=== PATIENT | female | born 1995 | race Caucasian/White ===

== ENCOUNTER 2024-06-20 10:24 | Emergency (ER) | payer OTHER, SELFPAY ==
[2024-06-20 10:25] VITALS: BP 131/82
--- NOTE | 2024-06-20 11:21 | ED.GENMED ---
History of Present Illness
General
Chief Complaint: Musculo-Skeletal Complaint
Time Seen by Provider: 06/20/24 10:35
History of Present Illness
History of Present Illness:
28-year-old female presents to the emergency department from relation of right great toe pain after dropping 1 pound work. She was wearing boots at the time. There is a noticeable subungual hematoma
Review of Systems
Review of Systems
Allergies reviewed?: Yes
All Other Systems: ROS reviewed and negative except as documented in HPI and ROS
Phy Exam
Physical Exam
Physical Exam:
GEN: Well appearing, NAD, WDWN
HEENT: Oral mucosa moist, no scleral icterus
Cardiac: Regular rate
Lung: No respiratory distress, no tachypnea
MSK: Moderate swelling to the right great toe with a 50% or greater subungual hematoma, trace bleeding from the nailbed, no nail plate avulsion
Skin: Good color, no pallor or jaundice, no rashes
Neuro: AO x3, moves all extremities freely
Psych: Calm, cooperative
Course
Orders/Labs/Results
Orders:
Orders
06/20/24 10:27
CR Foot - Right Min 3 Views Urgent
Comment:
Reason For Exam: injury, pain
Vital Signs
Initial and Last Documented VS:
Initial Vital Signs
Temp Pulse Resp BP Pulse Ox
98.1 F 89 16 131/82 100
06/20/24 10:25 06/20/24 10:25 06/20/24 10:25 06/20/24 10:25 06/20/24 10:25
Last Documented Vital Signs
Temp Pulse Resp BP Pulse Ox
98.1 F 89 16 131/82 100
06/20/24 10:25 06/20/24 10:25 06/20/24 10:25 06/20/24 10:25 06/20/24 10:25
Procedures
Nail Trepanation/Felon
Method of Drainage: nail cauterized
Sterile dressing applied: Yes
MDM/Problems Addressed
MDM/Problems Addressed:
Small tuft fracture intact x-ray. Additionally nail was trephinated in 2 locations due to significant subungual hematoma. Discussed supportive care
*Critical Care Note
Total Time (30-74mins, 75-104mins- exclusive of procedures): Not Applicable
ED Attending Note
-
Portions of this chart may have been created with voice recognition software.� Occasional wrong word or��sound alike� substitutions may have occurred due to the inherent limitations of voice recognition software.
Discharge Plan
Departure
Patient Disposition: Home (Routine Discharge)
Date of Disposition: 06/20/24
Time of Disposition: 11:22
Patient with high blood pressure during this ER visit?: No
Discharge Problem:
Closed fracture of distal phalanx of right great toe
Instructions: Bruising Under the Nail, Toe Fracture ED
Referrals:
UNKNOWN - PT DOES,NOT KNOW [Family Provider] -
Stand Alone Forms: Return to Work
Activity Restrictions/Additional Instructions:
Elevate and ice often to reduce pain
Interventions
Interventions:
*Risk Screen - Suicide Last Done: 06/20/24 10:25
*General Assessment Last Done: 06/20/24 10:25
*Neglect/Abuse Screening Last Done: 06/20/24 10:25
*ED COVID-19 Vaccine History Last Done: 06/20/24 10:25
*Nursing Disposition Last Done: 06/20/24 11:58
ED-Musculoskeletal Assessment Last Done: 06/20/24 10:59
Discharge Date and Time
Discharge Date/Time: 06/20/24 11:58
Print Language: MALAY
== END 2024-06-20 11:58 | disposition home or self-care (01) ==
LOC: EMR 10:24
PROVIDERS: EMERGENCY PHYSICIAN Emergency Medicine
DX: S92.421A Displaced fracture of distal phalanx of right great toe, initial encounter for closed fracture (principal); S90.211A Contusion of right great toe with damage to nail, initial encounter; W20.8XXA Other cause of strike by thrown, projected or falling object, initial encounter
CPT/HCPCS: 11740; 99283; 73630